=== PATIENT | male | born 1990 | race Caucasian/White ===

== ENCOUNTER 2017-09-12 15:17 | Emergency (ER) | payer SELFPAY ==
[~2017-09-12] VITALS: Ht 177.8 cm; Wt 75.8 kg
[2017-09-12 16:12] LABS: HEMATOCRIT 41.4 % (38.0-50.0); MCH 30.6 PG (29.0-34.0); MCHC 33.8 G/DL (30.0-36.0); MCV 90.6 FL (86-99); PLATELET COUNT 267 K/uL (156-360); RBC DIS.WIDTH-CV 12.6 % (11.8-14.6); RBC DIS.WIDTH-SD 41.6 % (39-53); RED BLOOD COUNT 4.57 M/uL (4.00-5.50); WHITE BLOOD COUNT 11.2 K/uL (4.1-10.2)
[2017-09-12 16:25] LABS: CHLORIDE 106 mEq/L (99-109); POTASSIUM 4.2 mEq/L (3.7-5.4); SODIUM 143 mEq/L (136-147)
[2017-09-12 16:27] LABS: GLUCOSE 101 mg/dL (70-99)
[2017-09-12 16:31] LABS: CREATININE 0.9 mg/dL (0.6-1.3)
[2017-09-12 16:32] LABS: UREA NITROGEN (BUN) 21 mg/dL (9-23)
[2017-09-12 16:39] LABS: GFR ESTIMATE (CALCULATED) > 59 mL/min/ (58.99-99999)
[2017-09-12 20:39] LABS: TROP-I INTERPRETATION NEGATIVE; TROPONIN-I < 0.01 ng/mL (0.0-0.30)
[2017-09-12 22:15] VITALS: BP 104/67
== END 2017-09-12 22:15 | disposition home or self-care (01) ==
LOC: EME 15:17 → EXP 15:17
PROVIDERS: Physician Assistant; Physician Assistant Medical
DX: R07.89 Other chest pain (principal)
CPT/HCPCS: 71046; 80048; 84484; 85027; 93005